=== PATIENT | male | born 1995 | race Caucasian/White ===

== ENCOUNTER 2019-10-02 10:42 | Emergency (ER) | payer SELFPAY, OTHER ==
[2019-10-02] MEDS ORDERED: AZITHROMYCIN 250 MG TAB ONE (11:36)
--- NOTE | 2019-10-02 11:50 | RAD REPORT ---
EXAM DESCRIPTION: Sangeeta Single View10/02/2019 11:41 am CLINICAL HISTORY: cough COMPARISON: none FINDINGS: The lungs appear clear of acute infiltrate. The heart is normal size IMPRESSION: No acute abnormalities displayed
--- NOTE | 2019-10-02 11:59 | ER ---
Nurse's Notes [facility] Name: Niraj Romo Age: 24 yrs Sex: Male : 1995 Arrival Date: 10/02/2019 Time: 10:47 Bed 13 Private MD: None, None Diagnosis: Bronchitis, not specified as acute or chronic;Acute suppurative otitis media Presentation: 10/01 10:55 Chief complaint: Patient states: Headache, R ear pain, cough and congestion for over a ca1 week. Denies fever. Vomiting last night, not this morning. Denies diarrhea. Coronavirus screen: Patient reports a subjective fever or greater than 100.4F, or cough, or shortness of breath, or difficulty breathing. Patient denies travel on a cruise ship or to a country the [facility] currently lists as an affected area. Patient denies contact with known and/or suspected case of COVID-19. Ebola Screen: Patient negative for fever greater than or equal to 101.5 degrees Fahrenheit, and additional compatible Ebola Virus Disease symptoms Patient denies exposure to infectious person. Patient denies travel to an Ebola-affected area in the 21 days before illness onset. No symptoms or risks identified at this time. Initial Sepsis Screen: Does the patient meet any 2 criteria? No. Patient's initial sepsis screen is negative. Does the patient have a suspected source of infection? No. Patient's initial sepsis screen is negative. Risk Assessment: Do you want to hurt yourself or someone else? Patient reports no desire to harm self or others. Onset of symptoms was October 02, 2019. 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 - Social history:: Smoking status: Patient reports the use of cigarette tobacco products, smokes one pack cigarettes per day. Screenin:03 Abuse screen: Denies threats or abuse. Denies injuries from another. Nutritional ph screening: No deficits noted. Tuberculosis screening: No symptoms or risk factors identified. 18:49 Fall Risk None identified. ph Assessment: 11:30 General: Appears in no apparent distress. comfortable, well groomed, Behavior is calm, ph cooperative, appropriate for age, Denies fever. Pain: Complains of pain in right ear. Neuro: Level of Consciousness is awake, alert, obeys commands, Oriented to person, place, time, situation, Denies weakness dizziness. Cardiovascular: Capillary refill < 3 seconds in bilateral fingers Patient's skin is warm and dry. Respiratory: Reports cough that is Airway is patent Respiratory effort is even, unlabored, Respiratory pattern is regular, symmetrical. GI: Reports nausea, vomiting, Patient currently denies abdominal pain, diarrhea. EENT: Reports pain in right ear when swallowing. Derm: Skin is intact, Skin is pink, warm \T\ dry. Musculoskeletal: Circulation, motion, and sensation intact. Range of motion: intact in all extremities. 12:10 Reassessment: Spoke to Annalise sánchez/ Health Department, who said that since [place] is from [place] that he would notify that health department. Vital Signs: 10:55 BP 121 / 72; Pulse 108; Resp 17 S; Temp 97.6(TE); Pulse Ox 97% on R/A; Weight 88.45 kg ca1 (R); Height 5 ft. 10 in. (177.80 cm) (R); Pain 2/10; 13:00 BP 118 / 80; Pulse 91; Resp 18; Temp 98.0; Pulse Ox 99% on R/A; ph 10:55 Body Mass Index 27.98 (88.45 kg, 177.80 cm) ca1 ED Course: 10:47 Patient arrived in ED. mr 10:47 None, None is Private Physician. mr 10:58 Triage completed. ca1 10:59 Arm band placed on right wrist. ca1 11:14 [facility] snw 11:14 Amari Cisse MD is Attending Physician. snw 11:17 Bella Goodwin, [place] is Primary Nurse. ph 11:32 Verbal reassurance given. Pulse ox on. NIBP on. jp3 11:32 Flu and/or RSV swab sent to lab. Strep swab sent to lab. Patient maintains SpO2 jp3 saturation greater than 95% on room air. 11:33 Strep Sent. jp3 11:33 Flu Sent. jp3 11:45 X-ray(s) taken. jp3 11:50 Chest Single View XRAY In Process Unspecified. EDMS 12:12 Patient has correct armband on for positive identification. Placed in gown. Bed in low ph position. Call light in reach. Side rails up X 1. 13:15 No provider procedures requiring assistance completed. Patient did not have IV access ph during this emergency room visit. Administered Medications: 11:36 Drug: Zithromax 500 mg Route: PO; ph 12:30 Follow up: Response: No adverse reaction ph Outcome: 11:58 Discharge ordered by MD. snw 13:15 Discharged to home ambulatory. ph 13:15 Condition: good 13:15 Discharge instructions given to patient, Instructed on discharge instructions, follow up and referral plans. medication usage, self quarantine x 2 weeks Demonstrated understanding of instructions, follow-up care, medications, Prescriptions given X 2. 13:17 Patient left the ED. Addendum: 10/04/2019 08:23 Addendum: Other Pt notified of negative COVID-19 swab results. Pt advised to continue d m5 to monitor symptoms and to return if symptoms worsen. Pt also given information to contact a primary care physician for follow up. Signatures: Dispatcher [employer] EDMS Catherine Branch, RN RN dmLeslye Salvador, INVESTIGATOR WELFARECorineC INVESTIGATOR WELFARE-Nina Carter mr LomasNaomi wayne, [place] RN ss Bella Goodwin RN RN Nilton Blackwell jp3 Alexandria Araya RN RN ca1 Corrections: (The following items were deleted from the chart) 10/01 11:01 10:55 Coronavirus screen: Patient reports a subjective fever or greater than 100.4F, or ca1 cough, or shortness of breath, or difficulty breathing. Surgical mask placed on patient. Patient moved to private room, placed in contact and droplet isolation with eye protection until further assessment. Patient denies travel on a cruise ship or to a country the [facility] currently lists as an affected area. Patient denies contact with known and/or suspected case of COVID-19. Infection Prevention Nurse has been notified of patient in isolation for probable COVID-19. ca1
--- NOTE | 2019-10-02 11:59 | EDPHYS ---
Physician Documentation [facility] Name: Niraj Romo Age: 24 yrs Sex: Male : 1995 Arrival Date: 10/02/2019 Time: 10:47 Bed 13 Private MD: None, None ED Physician Amari Cisse HPI: 10/01 11:33 This 24 yrs old Male presents to ER via Ambulatory with complaints of snw Headache, Ear Pain, Vomiting. 11:33 The patient or guardian reports cough, flu symptoms, myalgias, no appetite. Onset: The snw symptoms/episode began/occurred gradually, 1 week(s) ago, and became persistent. Associated signs and symptoms: Pertinent positives: earache, sore throat, vomiting. Severity of symptoms: At their worst the symptoms were moderate in the emergency department the symptoms are unchanged. The patient has not experienced similar symptoms in the past. The patient has not recently seen a physician. "2 people at work with virus". 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 - Social history:: Smoking status: Patient reports the use of cigarette tobacco products, smokes one pack cigarettes per day. ROS: 11:31 Constitutional: Negative for fever, chills, and weight loss, + fatigue, malaise, Eyes: snw Negative for injury, pain, redness, and discharge. 11:31 Neck: Negative for injury, pain, and swelling, Cardiovascular: Negative for chest pain, palpitations, and edema. 11:31 Abdomen/GI: Negative for abdominal pain, nausea, vomiting, diarrhea, and constipation, Back: Negative for injury and pain, : Negative for injury, bleeding, discharge, and swelling, MS/Extremity: Negative for injury and deformity, Skin: Negative for injury, rash, and discoloration, Neuro: Negative for headache, weakness, numbness, tingling, and seizure, Psych: Negative for depression, anxiety, suicide ideation, homicidal ideation, and hallucinations. 11:31 ENT: Positive for ear pain, sore throat. 11:31 Respiratory: Positive for cough. Exam: 11:30 Constitutional: This is a well developed, well nourished patient who is awake, alert, snw and in no acute distress. Head/Face: Normocephalic, atraumatic. Eyes: Pupils equal round and reactive to light, extra-ocular motions intact. Lids and lashes normal. Conjunctiva and sclera are non-icteric and not injected. Cornea within normal limits. Periorbital areas with no swelling, redness, or edema. 11:30 Neck: Trachea midline, no thyromegaly or masses palpated, and no cervical lymphadenopathy. Supple, full range of motion without nuchal rigidity, or vertebral point tenderness. No Meningismus. Chest/axilla: Normal chest wall appearance and motion. Nontender with no deformity. No lesions are appreciated. 11:30 Abdomen/GI: Soft, non-tender, with normal bowel sounds. No distension or tympany. No guarding or rebound. No evidence of tenderness throughout. Back: No spinal tenderness. No costovertebral tenderness. Full range of motion. Skin: Warm, dry with normal turgor. Normal color with no rashes, no lesions, and no evidence of cellulitis. MS/ Extremity: Pulses equal, no cyanosis. Neurovascular intact. Full, normal range of motion. Neuro: Awake and alert, GCS 15, oriented to person, place, time, and situation. Cranial nerves II-XII grossly intact. Motor strength 5/5 in all extremities. Sensory grossly intact. Cerebellar exam normal. Normal gait. 11:30 ENT: TM's: erythema, that is moderate, on the right, left with fluid level, Nose: no acute changes, Mouth: is normal, Posterior pharynx: is normal, Voice: is normal. 11:30 Cardiovascular: Rate: tachycardic, Rhythm: regular, Heart sounds: normal. 11:30 Respiratory: the patient does not display signs of respiratory distress, Respirations: normal, Breath sounds: are clear throughout, + dry cough. Vital Signs: 10:55 BP 121 / 72; Pulse 108; Resp 17 S; Temp 97.6(TE); Pulse Ox 97% on R/A; Weight 88.45 kg ca1 (R); Height 5 ft. 10 in. (177.80 cm) (R); Pain 2/10; 13:00 BP 118 / 80; Pulse 91; Resp 18; Temp 98.0; Pulse Ox 99% on R/A; ph 10:55 Body Mass Index 27.98 (88.45 kg, 177.80 cm) ca1 MDM: 11:15 Patient medically screened. snw 12:05 Data reviewed: vital signs, nurses notes. Counseling: I had a detailed discussion with snw the patient and/or guardian regarding: the historical points, exam findings, and any diagnostic results supporting the discharge/admit diagnosis, lab results, radiology results, the need for outpatient follow up, to return to the emergency department if symptoms worsen or persist or if there are any questions or concerns that arise at home. Special discussion: Based on the history and exam findings, there is no indication for further emergent testing or inpatient evaluation. I discussed with the patient/guardian the need to see the primary care provider for further evaluation of the symptoms. 14:33 ED course: PUI #[id number]. snw 10/01 11:21 Order name: Flu; Complete Time: 11:55 snw 10/01 11:21 Order name: Strep; Complete Time: 11:46 snw 10/01 11:22 Order name: Chest Single View XRAY; Complete Time: 12:05 snw 10/01 11:51 Order name: Throat Culture EDUT 10/01 12:26 Order name: Misc. Lab Test aa5 10/01 11:29 Order name: Misc. Order: Covid19; Complete Time: 12:26 snw 10/01 11:29 Order name: consult Order-Health dept sn Administered Medications: 11:36 Drug: Zithromax 500 mg Route: PO; ph 12:30 Follow up: Response: No adverse reaction ph Disposition: 13:22 Co-signature as Attending Physician, Amari Cisse MD. rn Disposition: 10/02/19 11:58 Discharged to Home. Impression: Bronchitis, not specified as acute or chronic, Acute suppurative otitis media. - Condition is Stable. - Discharge Instructions: Acute Bronchitis, Adult, Cough, Adult, Rehydration, Adult, Heat Therapy. - Prescriptions for promethazine 25 mg Oral Tablet - take 1 tablet by ORAL route every 6 hours As needed; 20 tablet. Zithromax 500 mg Oral Tablet - take 1 tablet by ORAL route once daily for 5 days; 5 tablet. - Medication Reconciliation Form, Thank You Letter, Antibiotic Education, Prescription Opioid Use, Work release form form. - Follow up: Emergency Department; When: As needed; Reason: Worsening of condition. Follow up: Private Physician; When: 2 - 3 days; Reason: Recheck today's complaints, Continuance of care, Re-evaluation by your physician. - Notes: Please avoid Motrin. Quarantine at home x recommended 2 weeks. Signatures: Dispatcher [employer] EDUT Leslye Gordon, TESSY-C HEALTH SERVICES DIRECTOR-Csnw Amari Cisse MD MD rn Naomi Cardona RN RN ss Bella Goodwin RN RN Alexandria Araya RN RN [facility] Corrections: (The following items were deleted from the chart) 13:17 11:58 10/02/2019 11:58 Discharged to Home. Impression: Bronchitis, not specified as ss acute or chronic; Acute suppurative otitis media. Condition is Stable. Forms are Medication Reconciliation Form, Thank You Letter, Antibiotic Education, Prescription Opioid Use. Follow up: Emergency Department; When: As needed; Reason: Worsening of condition. Follow up: Private Physician; When: 2 - 3 days; Reason: Recheck today's complaints, Continuance of care, Re-evaluation by your physician. snw
[2019-10-02 13:24] VITALS: BP 121/72; TEMP 97.6; O2SAT 97
== END 2019-10-02 13:17 | disposition home or self-care (01) ==
LOC: ER 10:42
DX: J40 Bronchitis, not specified as acute or chronic (principal); H66.009 Acute suppurative otitis media without spontaneous rupture of ear drum, unspecified ear; Z03.818 Encounter for observation for suspected exposure to other biological agents ruled out
CPT/HCPCS: 71045; 87070; 87081; 87804; 99284; U0001